=== PATIENT | female | born 2000 | race African-American/Black ===

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

== ENCOUNTER 2019-03-28 12:46 | Emergency (ER) | payer MEDICAID ==
[2019-03-28] MEDS ORDERED: IBUPROFEN 600 MG TABLET PO ONE (13:00)
[2019-03-28] MEDS ORDERED: ACETAMINOPHEN 325 MG TABLET PO ONE (13:00)
--- NOTE | 2019-03-28 13:00 | ER Document Report ---
HPI - HPI Time Seen by Provider: 03/28/19 12:56 Pain Level: 3 Context: Patient is a 40-year-old female who presents emergency department with a chief complaint of sore throat. Patient states that she has had her sore throat for the past 3 days. He says she is got a mild cough. Denies any fever, body aches, chills, or any other symptoms. Mother has same symptoms. - CONSTITUTIONAL Constitutional: DENIES: Fever, Chills - EENT EENT: REPORTS: Sore Throat, Ear Pain, Nasal Drainage-Clear, Nasal Drainage- Purulent, Congestion. DENIES: Eye problems - NEURO Neurology: DENIES: Headache - CARDIOVASCULAR Cardiovascular: DENIES: Chest pain - RESPIRATORY Respiratory: REPORTS: Coughing. DENIES: Trouble Breathing - GASTROINTESTINAL Gastrointestinal: DENIES: Abdominal Pain, Nausea, Patient vomiting - REPRODUCTIVE LMP: 03/2019 Reproductive: DENIES: : - MUSCULOSKELETAL Musculoskeletal: DENIES: Extremity pain - DERM Skin Color: Normal Skin Problems: None Past Medical History - Social History Smoking Status: Never Smoker Chew tobacco use (# tins/day): No Frequency of alcohol use: None Family History: Reviewed & Not Pertinent Patient has suicidal ideation: No Patient has homicidal ideation: No Renal/ Medical History: Denies: Hx Peritoneal Dialysis - Immunizations Immunizations up to date: Yes Hx Diphtheria, Pertussis, Tetanus Vaccination: Yes Vertical Provider Document - CONSTITUTIONAL Agree With Documented VS: Yes Exam Limitations: No Limitations General Appearance: No Apparent Distress - INFECTION CONTROL TRAVEL OUTSIDE OF THE [place] IN LAST 30 DAYS: No - HEENT HEENT: Atraumatic, Normocephalic, PERRLA, Pharyngeal Tenderness, Pharyngeal Erythema, Tympanic Membrane Red, Tympanic Membrane Bulging. negative: Conjuctival Injection, Pharyngeal Exudate - NECK Neck: Normal Inspection, Supple. negative: Lymphadenopathy-Left, Lymphadenopathy-Right - RESPIRATORY Respiratory: Breath Sounds Normal, No Respiratory Distress - CARDIOVASCULAR Cardiovascular: Regular Rate, Regular Rhythm Pulses: Normal: Radial - MUSCULOSKELETAL/EXTREMETIES Musculoskeletal/Extremeties: FROM - NEURO Level of Consciousness: Awake, Alert, Appropriate Motor/Sensory: No Motor Deficit, No Sensory Deficit - DERM Integumentary: Warm, Dry, No Rash Course - Re-evaluation Re-evalutation: 03/28/19 14:40 Presentation is most consistent with an acute otitis media. Influenza and strep tests are negative. Clinical history as well as exam is most consistent with this diagnosis. Based on history and examination do not suspect an acute meningitis, encephalitis, peritonsillar abscess, or retropharyngeal abscess. Patient is otherwise well in appearance, no acute distress. Vitals otherwise within normal limits. The patient will be started on Azithromycin. At this time will discharge with return precautions and follow-up recommendations. Verbal discharge instructions given a the bedside to the patient and opportunity for questions given. Medication warnings reviewed. Parents are in agreement with this plan and has verbalized understanding of return precautions and the need for primary care follow-up in the next 24-72 hours. - Vital Signs Vital signs: Temp Pulse Resp BP Pulse Ox 99.5 F 114 H 18 103/50 L 100 03/28/19 12:52 03/28/19 12:52 03/28/19 12:52 03/28/19 12:52 03/28/19 12:52 Discharge - Discharge Clinical Impression: Acute otitis media Qualifiers: Otitis media type: suppurative Laterality: bilateral Recurrence: not specified as recurrent Spontaneous tympanic membrane rupture: without spontaneous rupture Qualified Code(s): H66.003 - Acute suppurative otitis media without spontaneous rupture of ear drum, bilateral Condition: Stable Disposition: HOME, SELF-CARE Additional Instructions: You were seen today for ear pain and have an acute ear infection. Please take the antibiotic that has been prescribed until it is completed even if you are feeling better before you have finished all the antibiotics. For your pain: Take ibuprofen 600 mg and acetaminophen 1000 mg every 6 hours together as needed for pain. Return if you have worsening of your pain, loss of hearing in the affected ear, worsening facial pain, headaches, pass out, or any other symptoms that are worrisome to you. Prescriptions: Fluticasone Propionate [Flonase Nasal [place] 50 Mcg/[place] 16 gm] 2 sprays NASL DAILY #1 inhaler Azithromycin [Zithromax 250 mg Tablet] 250 mg PO DAILY #4 tablet Forms: Return to Work Referrals: KATHY BARBER MD [Primary Care Provider] - Follow up in 3-5 days
[2019-03-28 13:58] LABS: A TYPE INFLUENZA AG NEGATIVE (NEGATIVE); B INFLUENZA AG NEGATIVE (NEGATIVE)
[2019-03-28] MEDS ORDERED: AZITHROMYCIN 250 MG TABLET PO ONE (14:33)
[2019-03-28 14:45] VITALS: BP 116/57
--- NOTE | 2019-03-29 08:53 | ER Document Report ---
HPI - HPI Time Seen by Provider: 03/28/19 12:56 Pain Level: 3 Context: Patient is a 18-year-old female who presents emergency department with a chief complaint of sore throat. Patient states that she has had her sore throat for the past 3 days. She says she is got a mild cough. Denies any fever, body aches, chills, or any other symptoms. Mother has same symptoms. - CONSTITUTIONAL Constitutional: DENIES: Fever, Chills - EENT EENT: REPORTS: Sore Throat, Ear Pain, Nasal Drainage-Clear, Nasal Drainage- Purulent, Congestion. DENIES: Eye problems - NEURO Neurology: DENIES: Headache - CARDIOVASCULAR Cardiovascular: DENIES: Chest pain - RESPIRATORY Respiratory: REPORTS: Coughing. DENIES: Trouble Breathing - GASTROINTESTINAL Gastrointestinal: DENIES: Abdominal Pain, Nausea, Patient vomiting - REPRODUCTIVE LMP: 03/2019 Reproductive: DENIES: : - MUSCULOSKELETAL Musculoskeletal: DENIES: Extremity pain - DERM Skin Color: Normal Skin Problems: None Past Medical History - Social History Smoking Status: Never Smoker Chew tobacco use (# tins/day): No Frequency of alcohol use: None Family History: Reviewed & Not Pertinent Patient has suicidal ideation: No Patient has homicidal ideation: No Renal/ Medical History: Denies: Hx Peritoneal Dialysis - Immunizations Immunizations up to date: Yes Hx Diphtheria, Pertussis, Tetanus Vaccination: Yes Vertical Provider Document - INFECTION CONTROL TRAVEL OUTSIDE OF THE [place] IN LAST 30 DAYS: No Course - Re-evaluation Re-evalutation: 03/28/19 14:40 Presentation is most consistent with an acute otitis media. Influenza and strep tests are negative. Clinical history as well as exam is most consistent with this diagnosis. Based on history and examination do not suspect an acute meningitis, encephalitis, peritonsillar abscess, or retropharyngeal abscess. Patient is otherwise well in appearance, no acute distress. Vitals otherwise within normal limits. The patient will be started on Azithromycin. At this time will discharge with return precautions and follow-up recommendations. Verbal discharge instructions given a the bedside to the patient and opportunity for questions given. Medication warnings reviewed. Parents are in agreement with this plan and has verbalized understanding of return precautions and the need for primary care follow-up in the next 24-72 hours. - Vital Signs Vital signs: Temp Pulse Resp BP Pulse Ox 98.6 F 98 H 14 116/57 L 100 03/28/19 14:43 03/28/19 14:43 03/28/19 14:43 03/28/19 14:43 03/28/19 14:43 Discharge - Discharge Clinical Impression: Acute otitis media Qualifiers: Otitis media type: suppurative Laterality: bilateral Recurrence: not specified as recurrent Spontaneous tympanic membrane rupture: without spontaneous rupture Qualified Code(s): H66.003 - Acute suppurative otitis media without spontaneous rupture of ear drum, bilateral Condition: Stable Disposition: HOME, SELF-CARE Additional Instructions: You were seen today for ear pain and have an acute ear infection. Please take the antibiotic that has been prescribed until it is completed even if you are feeling better before you have finished all the antibiotics. For your pain: Take ibuprofen 600 mg and acetaminophen 1000 mg every 6 hours together as needed for pain. Return if you have worsening of your pain, loss of hearing in the affected ear, worsening facial pain, headaches, pass out, or any other symptoms that are worrisome to you. Prescriptions: Fluticasone Propionate [Flonase Nasal [place] 50 Mcg/[place] 16 gm] 2 sprays NASL DAILY #1 inhaler Azithromycin [Zithromax 250 mg Tablet] 250 mg PO DAILY #4 tablet Forms: Return to Work Referrals: KATHY BARBER MD [Primary Care Provider] - Follow up in 3-5 days
== END 2019-03-28 14:47 | disposition home or self-care (01) ==
LOC: ER 12:46
DX: H66.003 Acute suppurative otitis media without spontaneous rupture of ear drum, bilateral (principal); J02.9 Acute pharyngitis, unspecified; R05 Cough; H92.09 Otalgia, unspecified ear; R09.89 Other specified symptoms and signs involving the circulatory and respiratory systems
CPT/HCPCS: 87070; 87880; 87804; J3490 ×2; Q0144; 99283